=== PATIENT | male | born 1970 | race African-American/Black ===

== ENCOUNTER 2017-05-18 06:25 | Inpatient (IN) | payer OTHER ==
[2017-05-12 10:08] VITALS: BMI 28.0
[2017-05-18] MEDS ORDERED: SODIUM CHLORIDE 0.9% P/F 10 ML VIAL IJ ONE ×2 (06:54→08:33)
[2017-05-18] MEDS ORDERED: DEXAMETHASONE SOD PHOSPHATE/PF 10 MG/ML SDV ONE (06:54)
[2017-05-18] MEDS ORDERED: ROPIVACAINE HCL 0.5% 30ML VIAL ONE (06:54)
[2017-05-18] MEDS ORDERED: MIDAZOLAM HCL 2 MG/2 ML SINGLE DOSE VIAL ONE ×3 (06:54→10:09)
[2017-05-18] MEDS ORDERED: CELECOXIB 200 MG CAPSULE PO ONE (06:59)
[2017-05-18] MEDS ORDERED: CEFAZOLIN 2 GM in DEXTROSE 5%-WATER - 50 ML IVPB ONE (06:59)
[2017-05-18] MEDS ORDERED: TRANEXAMIC ACID 1000 MG/10 ML VIAL IVPUSH ONE (06:59)
[2017-05-18] MEDS ORDERED: ROPIVICAINE 0.2%/MORPH PF/KETOROLAC - 51ML DISP.SYRINGE IA ONE (06:59)
[2017-05-18] MEDS ORDERED: oxyCODONE HCL 10 MG SUSTAINED ACTING TABLET PO ONE (06:59)
[2017-05-18] MEDS ORDERED: GABAPENTIN 300 MG CAPSULE (FP) PO ONE (06:59)
[2017-05-18] MEDS ORDERED: PANTOPRAZOLE 40 MG TABLET (FP) PO ONE (07:00)
[2017-05-18] MEDS ORDERED: GELATIN, ABSORBABLE 100 EACH SPONGE TP ONE (07:11)
[2017-05-18] MEDS ORDERED: THROMBIN (BOVINE) 5,000 UNIT VIAL TP ONE (07:11)
[2017-05-18] MEDS ORDERED: VANCOMYCIN 1,000 MG VIAL (RESTRICTED TO ID ONLY) ONE (07:11)
[2017-05-18] MEDS ORDERED: ceFAZolin SODIUM 1 GM VIAL ONE ×2 (07:11→08:33)
[2017-05-18] MEDS ORDERED: ATROPINE SO4 0.4 MG/1 ML VIAL ONE (07:20)
[2017-05-18] MEDS ORDERED: PROPOFOL 20 ML ONE (07:20)
[2017-05-18] MEDS ORDERED: SUCCINYLCHOLINE CHLORIDE 200 MG/10 ML VIAL ONE (07:20)
[2017-05-18] MEDS ORDERED: ALBUTEROL SO4 18 GM HFA INHALER IH ONE (07:24)
[2017-05-18] MEDS ORDERED: BUPIVACAINE HCL/PF 0.5% (5MG/ML) 10 ML VIAL ONE (07:28)
[2017-05-18] MEDS ORDERED: ePHEDrine SULFATE 50 MG/1 ML AMPULE ONE (08:05)
[2017-05-18] MEDS ORDERED: TRANEXAMIC ACID 1000 MG/10 ML VIAL ONE ×2 (08:33→10:30)
[2017-05-18] MEDS ORDERED: DEXAMETHASONE SOD PHOSPHATE 4 MG/1 ML VIAL ONE (09:32)
[2017-05-18] MEDS ORDERED: PHENYLEPHRINE HCL 10 MG/1 ML SINGLE DOSE VIAL ONE (09:32)
[2017-05-18] MEDS ORDERED: ONDANSETRON 4 MG/2 ML VIAL ONE (10:34)
--- NOTE | 2017-05-18 11:08 | HP ---
Admitting History and Physical - Admission Chief Complaint: Right knee OA History of Present Illness: 46yo male with right knee pain x several months, has not responded to conservative management, xrays showed severe varus OA, indicated for TKA. History Source: Patient, Medical Record Limitations to Obtaining History: No Limitations - Past Medical History Musculoskeletal: Yes: Osteoarthritis - Smoking History Smoking history: Former smoker Have you smoked in the past 12 months: No If you are a former smoker, when did you quit?: 1999 - Alcohol/Substance Use Hx Alcohol Use: Yes (2-3 BEER/DAY) Home Medications - Allergies Allergies/Adverse Reactions: Allergies Allergy/AdvReac Type Severity Reaction Status Date / Time No Known Drug Allergies Allergy Verified 05/12/17 10:01 - Home Medications Home Medications: Ambulatory Orders NK [No Known Home Medication] 05/12/17 Review of Systems - Review of Systems Constitutional: reports: No Symptoms Physical Examination Vital Signs: Vital Signs Temperature 98.2 F 05/12/17 10:00 Pulse Rate 88 05/12/17 10:00 Respiratory Rate 20 05/12/17 10:00 Blood Pressure 126/82 05/12/17 10:00 O2 Sat by Pulse Oximetry (%) Constitutional: Yes: Well Nourished, No Distress, Calm Eyes: Yes: WNL, Conjunctiva Clear, EOM Intact HENT: Yes: WNL, Atraumatic, Normocephalic Neck: Yes: WNL, Supple Cardiovascular: Yes: WNL, Regular Rate and Rhythm Respiratory: Yes: WNL, Regular Gastrointestinal: Yes: WNL, Soft ...Rectal Exam: Yes: Deferred Musculoskeletal: Yes: Joint Stiffness, Joint Swelling, Muscle Pain Extremities: Yes: WNL Edema: No Peripheral Pulses WNL: Yes Integumentary: Yes: WNL Neurological: Yes: WNL, Alert, Oriented ...Motor Strength: WNL Psychiatric: Yes: WNL, Alert, Oriented Labs: Reviewed in chart Imaging - Results X-ray: Image Reviewed Problem List - Problems (1) Osteoarthritis of right knee Code(s): M17.11 - UNILATERAL PRIMARY OSTEOARTHRITIS, RIGHT KNEE Qualifiers: Osteoarthritis type: primary Qualified Code(s): M17.11 - Unilateral primary osteoarthritis, right knee Assessment/Plan 46yo male with right knee OA for right TKA
--- NOTE | 2017-05-18 11:09 | OP ---
Operative Note - Note: Operative Date: 05/18/17 Pre-Operative Diagnosis: right knee OA Operation: right TKA Post-Operative Diagnosis: Same as Pre-op Palm Gatherer: Miko Muller Anesthesia: Spinal Estimated Blood Loss (mls): 100
[2017-05-18] MEDS ORDERED: ONDANSETRON 4 MG/2 ML VIAL IVPUSH PRN ×2 (11:23→12:09)
[2017-05-18] MEDS ORDERED: MAG HYDROX/AL HYDROX/SIMETH 30 ML UNIT-DOSE CUP PO PRN (11:23)
[2017-05-18] MEDS ORDERED: MAGNESIUM HYDROX 2400MG/30ML ORAL SUSPENSION 30 ML CUP PO PRN (11:23)
[2017-05-18] MEDS: ACETAMINOPHEN 1000 MG/100 ML VIAL (NON FORMULARY) IVPB ONE ×2 (11:27→13:35)
[2017-05-18] MEDS ORDERED: LACTATED RINGERS SOLUTION 1,000 ML IV SCH (11:30)
[2017-05-18] MEDS: KETOROLAC TROMETHAMINE 30 MG/1 ML VIAL IVPUSH SCH ×4 (11:31→23:30)
--- NOTE | 2017-05-18 11:41 | SURG ---
Surgery Quantitative Consultant Note Quantitative Consultant: Miko Muller PA-C Date of Service: 05/18/17 Diagnosis: right knee osteoarthritis Procedure: right total knee replacement I was present for the entirety of the operative procedure. For further detail, please refer to operative report. Visit type - Case Type Case Type: Scheduled Admission - New patient This patient is new to me today: Yes Date on this admission: 05/18/17
[2017-05-18] MEDS ORDERED: oxyCODONE HCL 5 MG TABLET PO PRN (12:09)
[2017-05-18] MEDS: PROMETHAZINE HCL 25 MG/1 ML VIAL IVPUSH PRN ×2 (12:23→12:37)
[2017-05-18 13:15] LABS: HIV 1 & 2 AB NEGATIVE; HIV 1 AGp24 NEGATIVE
[2017-05-18] MEDS: traMADol HCL 50 MG TABLET PO SCH ×3 (13:35→23:29)
[2017-05-18] MEDS: LACTATED RINGERS SOLUTION 1,000 ML IV SCH (13:35)
[2017-05-18] MEDS: ACETAMINOPHEN 325 MG TABLET (FP) PO SCH ×2 (17:43→23:29)
[2017-05-18] MEDS: CEFAZOLIN 2 GM/D5W 2 GM/50 ML ML IVPB SCH (17:45)
[2017-05-18] MEDS ORDERED: PT OWN MED DRAWER 7, Y5N ONE (18:51)
[2017-05-18] MEDS ORDERED: DEXAMETHASONE SOD PHOSPHATE 10 MG/1 ML VIAL IVPB ONE (20:00)
[2017-05-18] MEDS: GABAPENTIN 300 MG CAPSULE (FP) PO SCH (21:31)
[2017-05-18] MEDS: CELECOXIB 200 MG CAPSULE PO SCH (21:31)
[2017-05-18] MEDS: oxyCODONE HCL 10 MG SUSTAINED ACTING TABLET PO SCH (21:32)
[2017-05-18] MEDS: SENNOSIDES/DOCUSATE COMBO (SENNA PLUS) TABLET (UD) PO SCH (21:32)
[2017-05-18] MEDS: ASCORBIC ACID 500 MG TABLET (FP) PO SCH (21:32)
[2017-05-19] MEDS: CEFAZOLIN 2 GM/D5W 2 GM/50 ML ML IVPB SCH (02:11)
[2017-05-19] MEDS: KETOROLAC TROMETHAMINE 30 MG/1 ML VIAL IVPUSH SCH (06:31)
[2017-05-19] MEDS: ACETAMINOPHEN 325 MG TABLET (FP) PO SCH ×4 (06:32→23:27)
[2017-05-19] MEDS: traMADol HCL 50 MG TABLET PO SCH ×4 (06:32→23:28)
[2017-05-19 08:35] LABS: MCH 28.3 pg (25.7-33.7); MCHC 32.3 g/dl (32.0-35.9); MEAN CELL VOLUME 87.6 fl (80-96); MEAN PLT VOLUME 11.1 fl (7.5-11.1); PLATELET COUNT 181 K/MM3 (134-434); RDW 12.7 % (11.9-15.9); WHITE BLOOD COUNT 14.2 K/mm3 (4.0-10.8)
[2017-05-19 08:36] LABS: ANION GAP 8 (8-16); CALCIUM 9.1 mg/dl (8.4-10.2); CO2 25 mmol/L (22-28); GLUCOSE,RANDOM 133 mg/dl (74-106)
[2017-05-19] MEDS: MULTIVITAMINS (DAILY MVI) TABLET (FP) PO SCH (09:33)
[2017-05-19] MEDS: CELECOXIB 200 MG CAPSULE PO SCH ×2 (09:33→21:01)
[2017-05-19] MEDS: ASCORBIC ACID 500 MG TABLET (FP) PO SCH ×2 (09:34→21:01)
[2017-05-19] MEDS: PANTOPRAZOLE 40 MG TABLET (FP) PO SCH (09:34)
[2017-05-19] MEDS: ASPIRIN 325 MG TABLET PO SCH (09:34)
[2017-05-19] MEDS: SENNOSIDES/DOCUSATE COMBO (SENNA PLUS) TABLET (UD) PO SCH ×2 (09:34→21:02)
[2017-05-19] MEDS: GABAPENTIN 300 MG CAPSULE (FP) PO SCH ×2 (09:34→21:01)
[2017-05-19] MEDS: oxyCODONE HCL 10 MG SUSTAINED ACTING TABLET PO SCH ×2 (09:34→21:01)
--- NOTE | 2017-05-19 14:16 | PN ---
Progress Note (short form) - Note Progress Note: 46 M POD1 right TKR under spinal anesthetic with peripheral nerve blocks for post operative pain doing well. Pt states that pain is well controlled, reports no anesthetic complications. Sensory and motor function intact in bilateral lower extremities.
--- NOTE | 2017-05-19 18:47 | PN ---
Progress Note (short form) - Note Progress Note: Pt seen and examined. Doing well. Walked 700+ feet since surgery. AVSS Selected Entries 05/19/17 14:24 Temperature 97.7 F Pulse Rate 93 H Respiratory 18 Rate Blood Pressure 115/69 O2 Sat by Pulse 98 Oximetry (%) Laboratory Tests 05/19/17 05/19/17 07:00 07:00 WBC 14.2 H Hgb 11.4 L Hct 35.4 Plt Count 181 Sodium 138 Potassium 4.5 Chloride 105 Carbon Dioxide 25 Anion Gap 8 BUN 16 Creatinine 1.0 Random Glucose 133 H Calcium 9.1 Gen: NAD RLE: c/d/i, NVID A/P 46yo male POD#1 s/p R TKA 1. PT/OOB - WBAT RLE 2. D/C home in AM after PT. Problem List - Problems (1) Osteoarthritis of right knee Code(s): M17.11 - UNILATERAL PRIMARY OSTEOARTHRITIS, RIGHT KNEE Qualifiers: Osteoarthritis type: primary Qualified Code(s): M17.11 - Unilateral primary osteoarthritis, right knee
--- NOTE | 2017-05-19 18:52 | DS ---
Physical Examination Vital Signs: Vital Signs Temperature 97.7 F 05/19/17 14:24 Pulse Rate 93 H 05/19/17 14:24 Respiratory Rate 18 05/19/17 14:24 Blood Pressure 115/69 05/19/17 14:24 O2 Sat by Pulse Oximetry (%) 98 05/19/17 14:24 Labs: CBC, BMP 05/19/17 07:00 05/19/17 07:00 Discharge Summary Reason For Visit: OSTEOARTHRITIS OF THE RIGHT KNEE Current Active Problems Osteoarthritis of right knee (Acute) Procedures: Principal: right TKA Hospital Course: Admitted for elective surgery. Procedure performed without complications. Pt received postoperative antibiotic prophylaxis and DVT ppx. Ambulated with physical therapy. Stable for discharge home with outpatient followup. Condition: Stable - Instructions Diet, Activity, Other Instructions: Dr. Ortiz - Knee Replacement Instructions Keep the Aquacel dressing on until removed by Dr. Ortiz in 10-14 days - it is antibacterial and waterproof and you can shower with it on. Call the office for a follow-up appointment with Dr. Ortiz in 10-14 days. Take one Aspirin 325mg daily for 6 weeks to prevent blood clots in your legs. Take one Pantoprazole 40mg daily for 6 weeks to protect against heartburn and ulcers. Take Celebrex 200mg twice daily for 30 days to reduce swelling and inflammation. Take a multivitamin, stool softener, and extra vitamin C supplement daily. For pain: *Mild pain (1-3/10): Take 1 Tramadol tablet every 4 hours as needed. Moderate pain (4-6/10): Take 1 Tramadol tablet and 1 Percocet tablet every 4 hours as needed. Severe pain (7-10/10): Take 1 Tramadol tablet and 2 Percocet tablets every 4 hours as needed. Activity: You can put as much weight on the operative leg as you want. Right after you get home, there will be a physical therapist coming to your house to help you walk around and bend/straighten your knee. After your follow-up appointment, you will be sent for more intensive outpatient physical therapy which will include machines and equipment that the home therapist cannot bring to your house. Always use a walker or cane for balance and to prevent falls. Disposition: [facility]/HOME HEALTH CARE - Home Medications Comprehensive Discharge Medication List: Ambulatory Orders Ascorbic Acid [Vitamin C -] 500 mg PO BID tablet 05/19/17 Aspirin [ASA -] 325 mg PO DAILY@0800 #40 tablet 05/19/17 Celecoxib [CeleBREX -] 200 mg PO BID #60 capsule 05/19/17 Multivitamins [Multivit ([facility] Formulary)] 1 tab PO DAILY tab 05/19/17 Oxycodone HCl/Acetaminophen [Percocet 5-325 mg Tablet] 1 - 2 tab PO Q4H PRN #60 tablet MDD 8 05/19/17 Pantoprazole Sodium [Protonix -] 40 mg PO DAILY #40 tablet.ec 05/19/17 Sennosides/Docusate Sodium [Pericolace -] 2 tablet PO BID tablet 05/19/17 Tramadol HCl [Ultram -] 50 mg PO Q4H PRN #90 tablet MDD 6 05/19/17
[2017-05-19] MEDS: oxyCODONE HCL 5 MG TABLET PO PRN (19:28)
[2017-05-19] MEDS: LACTATED RINGERS SOLUTION 1,000 ML IV SCH (21:44)
[2017-05-20] MEDS: traMADol HCL 50 MG TABLET PO SCH (06:31)
[2017-05-20] MEDS: oxyCODONE HCL 5 MG TABLET PO PRN (06:32)
[2017-05-20] MEDS: ACETAMINOPHEN 325 MG TABLET (FP) PO SCH (06:33)
[2017-05-20 08:36] LABS: MCH 28.2 pg (25.7-33.7); MCHC 32.7 g/dl (32.0-35.9); MEAN CELL VOLUME 86.2 fl (80-96); MEAN PLT VOLUME 10.9 fl (7.5-11.1); PLATELET COUNT 163 K/MM3 (134-434); RDW 12.9 % (11.9-15.9); WHITE BLOOD COUNT 11.3 K/mm3 (4.0-10.8)
[2017-05-20 08:42] LABS: ANION GAP 6 (8-16); CALCIUM 8.6 mg/dl (8.4-10.2); CO2 26 mmol/L (22-28); CREATININE 0.9 mg/dl (0.6-1.3); GLUCOSE,RANDOM 107 mg/dl (74-106)
[2017-05-20] MEDS: MULTIVITAMINS (DAILY MVI) TABLET (FP) PO SCH (09:11)
[2017-05-20] MEDS: GABAPENTIN 300 MG CAPSULE (FP) PO SCH (09:11)
[2017-05-20] MEDS: CELECOXIB 200 MG CAPSULE PO SCH (09:11)
[2017-05-20] MEDS: ASCORBIC ACID 500 MG TABLET (FP) PO SCH (09:11)
[2017-05-20] MEDS: ASPIRIN 325 MG TABLET PO SCH (09:11)
[2017-05-20] MEDS: SENNOSIDES/DOCUSATE COMBO (SENNA PLUS) TABLET (UD) PO SCH (09:16)
[2017-05-20] MEDS: PANTOPRAZOLE 40 MG TABLET (FP) PO SCH (09:16)
[2017-05-20] MEDS: oxyCODONE HCL 10 MG SUSTAINED ACTING TABLET PO SCH (09:16)
[2017-05-20] MEDS ORDERED: PT OWN MED DRAWER 7, Y5N ONE (13:42)
[2017-05-20 14:06] VITALS: BP 125/64; PULSE 83; TEMP 98.1
--- NOTE | 2017-05-22 09:59 | PATH ---
Surgical Pathology Report Patient Name: CINDY SWARTZ Med. Rec. #: [id number] /Age/Gender: 1970 (Age: 46) / M Account: [id number] Location: [facility] MED-SURG Taken: 05/18/2017 Received: 05/18/2017 Reported: 05/22/2017 Physicians: Tim Ortiz M.D. Specimen(s) Received BONE RIGHT KNEE Clinical History Right knee osteoarthritis Final Diagnosis BONE AND SOFT TISSUE, RIGHT KNEE, REPLACEMENT: DEGENERATIVE JOINT DISEASE. Electronically Signed Ruy Khan M.D. Gross Description Received in formalin labeled "bones right knee," is a 13.5 x 11.5 x 2.0 cm aggregate of [place], irregular portions of bone and soft tissue. The tibial plateau measures 8.1 x 5.5 x 1.7 cm. There is a 3.5 cm greatest dimension area of eburnation present. The remaining articular surfaces are [place]-yellow and focally granular. The underlying trabecular bone is yellow and hard. Barrel Stave Inspector sections are submitted in one cassette, following decalcification. 05/19/2017 [facility]05/19/2017
== END 2017-05-20 14:23 | disposition home health service (06) | DRG 470 ==
LOC: FM/S 06:25
PROVIDERS: ADMIT Student in an Organized Health Care Education/Training Program; ATTEND Student in an Organized Health Care Education/Training Program
PROC: 0SRC0JZ Replacement of Right Knee Joint with Synthetic Substitute, Open Approach (ICD-10-PCS; principal; 2017-05-18 08:52)
DX: M17.11 Unilateral primary osteoarthritis, right knee (principal); Z87.891 Personal history of nicotine dependence
CPT/HCPCS: 36415; 73560-TC-RT; 80048; 85027; 86803; 87389; 88304-TC; 88311-TC; 94010; 94760; 97116-GP; 97162-GP